=== PATIENT | female | born 1985 | race Caucasian/White ===

== ENCOUNTER 2017-12-19 03:51 | Inpatient (IN) | payer OTHER ==
[2017-12-19] MEDS ORDERED: CEFAZOLIN/NS 1gm 1 GM/50 ML BAG IVPB ONE ×2 (06:11→16:00)
[2017-12-19] MEDS ORDERED: CEFAZOLIN/SWI 1gm 1 GM/10 ML SYR ONE (06:36)
[2017-12-19] MEDS ORDERED: METOCLOPRAMIDE 10 MG/2mL INJ ONE (06:36)
[2017-12-19] MEDS ORDERED: NA CIT/CITRIC AC 30 ML ORAL UDC ONE (06:36)
--- NOTE | 2017-12-19 06:58 | PREOPHP ---
Date of Admission: 12/19/2017 History Of Present Illness: A 32-year-old, 4, para 2, both previous C-sections, 38 weeks 1 d ay, scheduled for on the of this month, started guillermina 130 this morning and is co ntracting regularly since then. She has made some slight cervical change, is probably 2 cm now and a bout 60% effaced, bloody show noted. The baby looks good. Mother had some yogurt at 1:30 but nothin g since then. Past Medical History: Noncontributory. Allergies: NO KNOWN ALLERGIES. Physical Examination: HEENT: Clear. Pupils equal, round, and reactive to light and accommodation. Conjunctivae are well perfused. No oral, lingual, or buccal lesions. Chest and Lungs: Clear. Heart: Without murmurs, thrills, heaves, or rubs. Breasts: Not examined. Abdomen: Term size but small baby. Extremities: Clear without edema, cyanosis, or clubbing. Pelvic: Exam as stated. Dr. More has been notified. Surgical crew has been notified and we will proceed within the next hour or 2. She has already been here for 2 plus hours and guillermina regularly. The pain scale has zayra e from 6 to 7. SCOTT/SOLITARIO Voice ID: [id number]
[2017-12-19] MEDS ORDERED: Ringers Lactate 1,000 ML IV PRN (07:08)
[2017-12-19] MEDS ORDERED: MORPHINE SULFATE/PF 1 MG/ML (10 ML AMP) ONE (07:13)
[2017-12-19] MEDS ORDERED: FENTANYL CITR 250 MCG/5 ML ONE (07:14)
[2017-12-19 07:20] LABS: RPR Titer ND
[2017-12-19 07:25] LABS: Urine Appearance CLEAR; Urine Bilirubin NEGATIVE (NEG); Urine Blood NEGATIVE (NEG); Urine Color YELLOW; Urine Glucose NEGATIVE (NEG); Urine Protein NEGATIVE (NEG); Urine Specific Gravity <=1.005 (1.005-1.030); Urine Urobilinogen 0.2 mg/dL (0.2-1.0); Urine pH 6.5 (5.0-7.0)
[2017-12-19 07:26] VITALS: BMI 21.8
[2017-12-19 07:27] LABS: Urine Microscopic Reflex NO UMIC
[2017-12-19] MEDS ORDERED: METHYLERGONOVINE 0.2MG/ML AMP IM ONE (07:42)
[2017-12-19] MEDS ORDERED: NA CIT/CITRIC AC 30 ML ORAL UDC PO ONE (07:42)
[2017-12-19 07:46] LABS: Absolute Lymphocytes (CBC) 1.4 K/uL (0.7-4.9); Absolute Monocytes 0.6 K/uL (0.1-1.3); Absolute Neutrophil 10.6 K/uL (1.8-8.0); Basophils % 0.4 % (0-1.3); Eosinophils % 0.4 % (0-4.4); Hematocrit 42.4 % (36.0-45.0); Lymphocytes % 10.8 % (15.3-44.8); MCV 93.7 fL (80-100); MPV 9.4 fL (7.6-11.3); Monocytes % 4.8 % (3.3-12.3); RBC Red Blood Cell Count 4.53 M/uL (3.86-4.86)
[2017-12-19] MEDS ORDERED: OXYTOCIN 10 UNIT/ML ML IV ONE (07:50)
[2017-12-19] MEDS ORDERED: Ringers Lactate 1,000 ML IV SCH (08:00)
[2017-12-19] MEDS ORDERED: METOCLOPRAMIDE 10 MG/2mL INJ IV SCH (08:00)
[2017-12-19] MEDS ORDERED: CEFAZOLIN/SWI 1gm 1 GM/10 ML SYR IV SCH ×2 (08:00→16:00)
[2017-12-19] MEDS ORDERED: BISACODYL 10 MG RECTAL SUPP RECT PRN (08:35)
[2017-12-19] MEDS ORDERED: ACETAMINOPHEN 500 MG TAB PO PRN (08:35)
[2017-12-19] MEDS ORDERED: DIPHENHYDRAMINE 25 MG TAB/CAP PO PRN (08:35)
[2017-12-19] MEDS ORDERED: ONDANSETRON 4 MG/2 ML VIAL IV PRN (08:35)
[2017-12-19] MEDS ORDERED: ONDANSETRON 4 MG (ODT) TAB PO PRN (08:35)
[2017-12-19] MEDS ORDERED: Oxycodone HCl/Acetaminophen 1 TAB TAB PO PRN (08:35)
[2017-12-19] MEDS ORDERED: KETOROLAC 30 MG/ML INJ IM PRN (08:35)
[2017-12-19] MEDS: KETOROLAC 30 MG/ML INJ IV PRN ×2 (10:45→20:52)
[2017-12-19] MEDS: OXYTOCIN/LR 20 UNIT/1,000 ML BAG IV SCH ×2 (12:32→17:00)
[2017-12-19] MEDS ORDERED: D5LR 1,000 ML with OXYTOCIN 20 UNIT IV SCH ×2 (15:00)
--- NOTE | 2017-12-19 19:40 | OP ---
Surgeon: Celio Kaiser MD Shellacker: Dr. Velázquez. Dr. Traylor in the building, but not present at the time of delivery. Anesthesiologist: Dr. More. Indication: This is a 32-year-old, 4, para 2, previous C-sections, for repeat on 09 10 of this month, labor this morning. Noted to have cervical change and bloody show as well as cont ractions every 2-3 minutes, pain rating of 6 advanced to 7. It was decided proceed with repeat angela makenna section, infection, blood loss, anesthetic complications, injury to bladder, bowel, ureter, posto perative complications, clots in legs, and pneumonia discussed. The patient knows fully well, this d oes not constitute all the possible problems that could occur during following surgery. Procedure In Detail: After spinal block anesthesia, the patient was prepped and draped in the usual sterile manner, and placed in dorsal supine position. A Pfannenstiel incision was created over the p revious incision site. Incision was carried to the fascia. The fascia was incised, and the incision was carried transversely bilaterally. An anterior fascial plane was developed with blunt and sharp dissection. The peritoneal defect was seen and entered. Low transverse uterine incision was created . The lower uterine segment was very thin. A 5 pound, 9 ounce female, was delivered without difficu lties. Apgars 9 and 9. Cord blood specimen was obtained. The placenta was removed manually. Uteru s cleared of clot and blood and exteriorized. Cervical os was dilated with ring clamp. The uterus t hen closed with a running-locked stitch of 1 chromic followed by [id number] stitch in the right angle. The was also small serosal defect on the right side approximately 3 cm, this was closed with 1 chromic running stitch. Estimated blood loss 700 cc. Gutters were clear of clot and blood. Uteru s was replaced in the peritoneal cavity. Inspection of suture line showed no further bleeding. The muscle was then closed with 3 interrupted sutures of 0 Vicryl. The fascia was closed with 1 Vicryl r unning from either angle to the midline. Subcutaneous tissue was closed with 2-0 plain. Absorbable radha placed and then metal radha placed. The patient had been given 1 g of Ancef for prophylaxi s. Tolerated all procedures well. She was transferred back to her room in good condition. Final Diagnosis: Intrauterine gestation, 38 weeks and 1 days, previous cesareans in labor, repeat ce ani, spinal block anesthesia. SCOTT/SOLITARIO Voice ID: [id number] Report ID: [id number]
[2017-12-20] MEDS: Oxycodone HCl/Acetaminophen 1 TAB TAB PO PRN ×3 (05:48→20:00)
[2017-12-20] MEDS ORDERED: MAGNESIUM HYDROXIDE 8% 30 ML PO PRN (08:35)
--- NOTE | 2017-12-20 12:37 | PN ---
Postoperatively doing quite well. No post spinal block problems. H and H with minimal change. Loch ia is normal. We will discontinue IV and Camejo this morning. Full postoperative talk given. She wi ll get her Tdap shot before she leaves. She will be dismissed tomorrow morning. Dr. Rosado will take over at that time. SCOTT/SOLITARIO Voice ID: [id number] Report ID: [id number]
[2017-12-20] MEDS ORDERED: Tdap (Diph,Pertuss(Acell),Tet Vac) 0.5 ML SYR IMVAC ONE (17:10)
[2017-12-21] MEDS: Oxycodone HCl/Acetaminophen 1 TAB TAB PO PRN ×2 (01:40→06:25)
[2017-12-21 06:04] LABS: RPR (Rapid Plasma Reagin) NON-REACT (NON-REACT)
[2017-12-21] MEDS ORDERED: Ringers Lactate 1,000 ML IV ONE (08:22)
[2017-12-21 12:34] VITALS: BP 113/74; TEMP 97.5
[2017-12-23 05:06] LABS: HBsAG Nonreactive (Nonreactive)
== END 2017-12-21 12:20 | disposition home or self-care (01) | DRG 766 ==
LOC: L&D 03:51 → 2ND-WC 06:23
PROVIDERS: ADMIT Specialist; ATTEND Specialist
PROC: 10D00Z1 Extraction of Products of Conception, Low, Open Approach (ICD-10-PCS; principal; 2017-12-19 07:54)
DX: O34.211 Maternal care for low transverse scar from previous cesarean delivery (principal); Z37.0 Single live birth; Z3A.38 38 weeks gestation of pregnancy
CPT/HCPCS: 36415; 81003; 85014; 85025; 86592; 86850; 86900; 86901; 87340; 88305; 88307; 90715; J0690; J2590; J2765